=== PATIENT | female | born 1940 | race Caucasian/White ===

== ENCOUNTER 2019-11-13 19:22 | Inpatient (IN) | payer MEDICARE, OTHER ==
[~2019-11-13] VITALS: Ht 157.4 cm; Wt 49.4 kg
[~2019-11-13 19:22] MED LIST: AMIODARONE HYD200 MG PO; CARVEDILOL3.125 MG PO; FUROSEMIDE20 M1 PO; LISINOPRIL2.5 MG PO; WARFARIN SOD2 MG PO
[2019-11-13 19:35] VITALS: BP 125/53
[2019-11-13 20:38] LABS: HEMATOCRIT 39.4 % (37.0-47.0); MEAN CORPUSCULAR HGB 31.3 pg (27.0-31.0); MEAN CORPUSCULAR HGB CONC 32.2 g/dl (33.0-37.0); MEAN PLATELET VOLUME 10.2 fl (9.6-12.3); PLATELET COUNT AUTOMATED 265 10*3/uL (130-400); RED BLOOD COUNT 4.06 10*6/uL (4.10-5.10); RED CELL DISTRI WIDTH 15.8 % (0-14.5); WHITE BLOOD COUNT 26.3 10*3/uL (4.8-10.8)
[2019-11-13 20:52] LABS: ALBUMIN 2.7 gm/dl (3.1-4.5); CREATININE 1.91 mg/dL (0.55-1.02); POTASSIUM 4.4 mmol/L (3.5-5.1); TOTAL PROTEIN 6.6 gm/dL (6.4-8.2)
[2019-11-13 21:05] LABS: BASOPHILS 3 % (0-1); PLATELET SUFFICIENCY NORMAL (NORMAL); TOTAL CELLS COUNTED 100 #CELLS
[2019-11-13 22:41] LABS: BILIRUBIN NEGATIVE (NEGATIVE); BLOOD 1+ (NEGATIVE); CLARITY SL CLOUDY (CLEAR); COLOR YELLOW (YELLOW); GLUCOSE NEGATIVE (NEGATIVE); KETONE NEGATIVE (NEGATIVE); PH 8.5 (5.0-9.0); SPECIFIC GRAVITY 1.005 (1.005-1.030)
[2019-11-13 22:42] LABS: LEUKO ESTERASE 3+ (NEGATIVE); NITRITE POSITIVE (NEGATIVE); UROBILINOGEN 0.2 E.U./dl (0.2-1.0)
[2019-11-13 22:45] LABS: BACTERIA 2+; TRIP PHOS CRYSTALS 1+; WBC 21-30 wbc/hpf (0-5)
--- NOTE | 2019-11-14 00:42 | NUR ---
MED REC UPDATED VIA CLAIM HISTORY.
--- NOTE | 2019-11-14 01:26 | NUR ---
MULTIPLE AREAS TO TOES ON BOTH FEET NOTED TO BE OPENED AND REDDENDED. PT STATES THESE ARE CRHONIC AND HEEL QUICKLY. SHE DENIED PICS/MEASUREMENTS OF THEM BUT WAS AGREEABLE TO WOUND PIC/MEASUREMENTS TO LEFT ELBOW SKIN TEAR. REQUESTED THAT ONLY BAND AIDES BE APPLIED TO TOE AREAS.
--- NOTE | 2019-11-14 01:40 | NUR ---
WOUND TO LEFT ELBOW DRESSED PER ORDERS.
--- NOTE | 2019-11-14 03:45 | NUR ---
24HR CHART CHECK COMPLETED
[2019-11-14 06:29] LABS: HEMATOCRIT 37.8 % (37.0-47.0); MEAN CORPUSCULAR HGB 29.9 pg (27.0-31.0); MEAN CORPUSCULAR HGB CONC 31.5 g/dl (33.0-37.0); PLATELET COUNT AUTOMATED 280 10*3/uL (130-400); RED BLOOD COUNT 3.98 10*6/uL (4.10-5.10); RED CELL DISTRI WIDTH 15.6 % (0-14.5); WHITE BLOOD COUNT 23.7 10*3/uL (4.8-10.8)
[2019-11-14 06:57] LABS: CREATININE 1.71 mg/dL (0.55-1.02); POTASSIUM 4.2 mmol/L (3.5-5.1)
[2019-11-14 07:05] LABS: THYROID STIM HORMONE (HS) 0.733 uIU/ml (0.358-4.75)
[2019-11-14 07:20] LABS: BASOPHILS 1 % (0-1); TOTAL CELLS COUNTED 100 #CELLS
[2019-11-14 07:21] LABS: PLATELET SUFFICIENCY NORMAL (NORMAL)
--- NOTE | 2019-11-14 07:53 | NUR ---
IN PT ROOM TO COMPLETE ASSESSMENT, PT STATES THAT SHE IS FEELING BETTER AND READY TO GO HOME. DR SILVESTRE IN THE ROOM AND DESCRIBED HOW SHE WILL NEED TO STAY UNTIL THE URINCE CULTURE IS BACK SO THEY CAN TREAT THE UTI ACCORDINGLY. PT IS ORDERING FOOD AT THIS TIME, CALL LIGHT WITHIN REACH, WILL CONTINUE TO MONITOR
[2019-11-14 08:00] VITALS: BP 131/55
--- NOTE | 2019-11-14 11:29 | NUR ---
Shift chart check completed.
[2019-11-14 12:00] VITALS: BP 105/52
--- NOTE | 2019-11-14 13:06 | NUR ---
UPDATED DR SILVESTRE OF URINE CULTURE
--- NOTE | 2019-11-14 13:15 | NUR ---
MESSAGE LEFT FOR NEW CONSULT ON ANSWERING SERVICE
--- NOTE | 2019-11-14 13:33 | NUR ---
DEON KHAN CALLED AND TOLD HER THE PATIENT IS ON ROCEPHIN, SHE SAID TO JUST CONTINUE THAT
--- NOTE | 2019-11-14 13:40 | NUR ---
FAMILY MEMBER CALLED FOR PATIENT INFORMATION
[2019-11-14 16:00] VITALS: BP 133/64
[2019-11-14 20:00] VITALS: BP 118/60
[2019-11-15] VITALS: BP 122/62
[2019-11-15 06:30] LABS: BASO # 0.2 10*3/uL (0.0-0.1); BASO % 1.3 % (0.0-1.0); EOS # 0.2 10*3/uL (0.0-0.4); EOS % 1.6 % (1.0-4.0); HEMATOCRIT 35.5 % (37.0-47.0); LYMPH # 1.1 10*3/uL (1.3-4.4); MEAN CORPUSCULAR HGB 30.3 pg (27.0-31.0); MEAN CORPUSCULAR HGB CONC 31.3 g/dl (33.0-37.0); MONO % 7.4 % (3.0-9.0); NEUT # 10.9 10*3/uL (2.3-7.9); NEUT % 80.8 % (47.0-73.0); PLATELET COUNT AUTOMATED 276 10*3/uL (130-400); RED BLOOD COUNT 3.66 10*6/uL (4.10-5.10); RED CELL DISTRI WIDTH 15.8 % (0-14.5); WHITE BLOOD COUNT 13.4 10*3/uL (4.8-10.8)
[2019-11-15 06:40] LABS: CREATININE 1.26 mg/dL (0.55-1.02); POTASSIUM 3.9 mmol/L (3.5-5.1)
--- NOTE | 2019-11-15 07:50 | NUR ---
IN PT ROOM TO COMPLETE ASSESSMENT. SHE STATES THAT SHE IS STILL FEELING GOOD AND READY TO GET OUT OF HERE. SHE SLEPT THROUGH THE NIGHT IN THE CHAIR AND CONTINUES TO SIT IN THE CHAIR STATING THE CHAIR IS MORE COMFORTABLE THAN THE BED. PT UP TO RESTROOM WITH WALKER AND DID A GREAT JOB WITH WALKING. BACK IN CHAIR READY TO ORDER BREAKFAST. CALL LIGHT WITHIN REACH, WILL CONTINUE TO MONITOR
[2019-11-15 08:00] VITALS: BP 160/50
--- NOTE | 2019-11-15 08:11 | NUR ---
PHYSICAL THERAPY Physical therapy screen received and chart reviewed. Patient admitted for dehydration. Recommend skilled PT evaluation if decline in functional mobility presents. Thank you. Jessika Luna,PT,DPT
--- NOTE | 2019-11-15 09:00 | NUR ---
Trolley Car Overhauler in to talk to patient. Patient states lives at home with . There are no steps in the home. Physician: reji rios Pharmacy: mail Home health services: none Patient's level of ADLs: INDEPENDENT Patient has working utilities: all working DME: none Follow-up physician's appointment after d/c: will be made by hospitalist nurse director upon discharge Does patient want to access PORTAL?: no Discharge plan discussed with patient, she states she lives at home with her hsuband, she stated her grandaughter is in the process of moving in with them also, patient states she is independent in adls and ambulation, she doesn't drive but her or daughter does. she stated she will return home when medically stable. discussed with her [facility] and educated her on the services they proved. she stated she was familiar with [facility] but doesn't want any home services at this time, patient stated her will transport her home when she is medically stable for discharge. case management will follow for any other needs. HERBERTH WISEMAN
--- NOTE | 2019-11-15 09:40 | NUR ---
PT FLUIDS SHUT OFF DUE TO LEAVINGN FLOOR FOR RENAL US. WILL PLACE BACK ON WHEN SHE ARRIVES TO FLOOR
--- NOTE | 2019-11-15 09:41 | NUR ---
KAYODE UNDERWOOD [id number] Please refer to the physician's history and physical for past medical history, comorbid conditions, and allergies. Diagnosis: ABRIL (ACUTE KIDNEY INJURY), UTI (URINARY TRACT Nathaniel Score: 19,LOW OR NO RISK WOUND DESCRIPTIONS: Wound Number: 1 Location of the wound: Left elbow Type of wound: skin tear Thickness: Partial Size: 0.4cm x 0.4cm x <0.1cm Tunneling: none Undermining: none Sinus Tract: none Presence of Exudate: Serous sanguineous Amount: Light Color: Red Odor: None Periwound Skin Appearance: Normal Wound edges: approximated Pain (associated with wound): none at time of assessment How does patient state this happened? pt stated she wasn't even sure of how this happened Wound Number: 2 Location of the wound: left 2nd toe Type of wound: unstageable Thickness: Full Size: 1.2cm x 1.2cm x <0.1cm Tunneling: none Undermining: none Sinus Tract: none Presence of Exudate: none Amount: None Color: Yellow, red Odor: None Periwound Skin Appearance: Normal Wound edges: approximated Pain (associated with wound): none at time of assessment How does patient state this happened? pt stated she has had this for years and wants no treatment to them Wound Number: 3 Location of the wound: right 2nd toe Type of wound: unstageable Thickness: Full Size: 0.9cm x 0.8cm x <0.1cm Tunneling: none Undermining: none Sinus Tract: none Presence of Exudate: none Amount: None Color: Yellow, red Odor: None Periwound Skin Appearance: Normal Wound edges: approximated Pain (associated with wound): none at time of assessment How does patient state this happened? pt stated she has had this for years and wants no treatment to them Right 4th toe is red and blanchable at time of assessment. No open areas noted at this time. Surface the patient is resting on: Isoflex SKIN PREVENTION RECOMMENDATION: 1. Pressure redistribution support surface as appropriate 2. Elevate heels 3. Remove boots/TEDS every shift and reapply 4. Head of bed 30 degrees as tolerated 5. Assess nutrition and hydration 6. Manage moisture 7. Avoid the use of containment devices while in bed 8. Use absorptive products on surfaces limit layers of linens on bed 9. Turn and reposition every 1-2 hours in bed and every 1 hour in chair as tolerated 10. Weight shifts every 15 minutes while up in chair 11. Offloading with pillows or device to keep heels elevated off bed 12. Monitor skin at least every shift 13. Inspect under medical devices twice a day WOUND TREATMENT RECOMMENDATIONS: Would recommend consult to podiatry for possible debridement. Venous and arterial studies due to non-healing wounds. Cleanse right 2nd toe and left 2nd toe with nss and apply sureprep around the wound thearhoney to wound bed and cover with dsd every 2 days and prn for soiling. Apply sureprep to right 4th toe daily and prn for soiling cover with bandaid Patient refusing all treatment to areas to right 2nd and 4th toe as well as left 2nd toe. Continue skin tear guidelines to left elbow. Patient states she will care for these areas when she returns home and doesn't wish to follow up in an outpatient setting at this time.
--- NOTE | 2019-11-15 10:04 | NUR ---
PT BACK FROM US
--- NOTE | 2019-11-15 10:26 | NUR ---
Dr. Solitario notified of wound care orders needed.
[2019-11-15 12:00] VITALS: BP 121/62
--- NOTE | 2019-11-15 14:25 | NUR ---
BLADDER SCAN THE PATIENT AND THERE WAS 28ML SHOWING ON THE SCANNER. CALLED JOEL COULTER TO INFORM HER
[2019-11-15 16:00] VITALS: BP 166/72
--- NOTE | 2019-11-15 16:06 | NUR ---
CONSULSTED DR MICHELLE OF NEW CONSULT, RESIDENT STATES SHE WILL SEE HER TOMORROW
--- NOTE | 2019-11-15 17:11 | NUR ---
CALLED CT TO LET THEM KNOW PT FINISHED ALL OF HER REDICAT
--- NOTE | 2019-11-15 17:48 | NUR ---
PT OFF FLOOR TO CT
--- NOTE | 2019-11-15 19:20 | NUR ---
REPORT RECEIVED. PT SITTING IN CHAIR WATCHING TV AT THIS TIME. IV FLUIDS INFUSING WITHOUT DIFFICULTY. CALL LIGHT IN REACH
[2019-11-15 20:00] VITALS: BP 156/61
--- NOTE | 2019-11-15 22:00 | NUR ---
DR. BRADY NOTIFIED THAT PT LOST IV ACCESS AND NO NURSE CAN GET IV ACCESS AT THIS TIME. STATED THAT IT WAS OKAY TO NOT RECEIVE ROCEPHIN TONIGHT. D/C'D FLUIDS AT THIS TIME WELL. NO OTHER ORDERS.
[2019-11-16] VITALS: BP 132/47
--- NOTE | 2019-11-16 | NUR ---
PATIENT SLEEPING, AT THIS TIME. CALL LIGHT IN REACH
--- NOTE | 2019-11-16 04:00 | NUR ---
PT SLEEPING. CALL LIGHT IN REACH
[2019-11-16 06:09] LABS: BASO # 0.2 10*3/uL (0.0-0.1); BASO % 1.5 % (0.0-1.0); EOS # 0.2 10*3/uL (0.0-0.4); EOS % 2.1 % (1.0-4.0); HEMATOCRIT 33.8 % (37.0-47.0); LYMPH # 0.9 10*3/uL (1.3-4.4); LYMPH % 8.3 % (27.0-41.0); MEAN CELL VOLUME 97.1 fl (81.0-99.0); MEAN CORPUSCULAR HGB 30.2 pg (27.0-31.0); MEAN CORPUSCULAR HGB CONC 31.1 g/dl (33.0-37.0); MEAN PLATELET VOLUME 10.1 fl (9.6-12.3); MONO # 0.8 10*3/uL (0.1-1.0); MONO % 7.3 % (3.0-9.0); NEUT # 8.9 10*3/uL (2.3-7.9); PLATELET COUNT AUTOMATED 323 10*3/uL (130-400); RED BLOOD COUNT 3.48 10*6/uL (4.10-5.10); RED CELL DISTRI WIDTH 15.7 % (0-14.5); WHITE BLOOD COUNT 11.2 10*3/uL (4.8-10.8)
[2019-11-16 06:39] LABS: ALBUMIN 2.1 gm/dl (3.1-4.5); POTASSIUM 3.9 mmol/L (3.5-5.1)
[2019-11-16 06:41] LABS: CREATININE 1.07 mg/dL (0.55-1.02); TOTAL PROTEIN 5.7 gm/dL (6.4-8.2)
--- NOTE | 2019-11-16 06:58 | NUR ---
This nurse along with Veronica TANG went to change dressing per order patient refusing at this time. Patient states like I said yesterday my mother has had these areas and they don't need treatment. She states she just bumped her arm and is okay this morning and doesn't want treatment to it at this time.
--- NOTE | 2019-11-16 07:16 | NUR ---
NOTIFIED DR CABRERA OF POSITIVE BLOOD CULTURES
[2019-11-16 08:00] VITALS: BP 148/68
--- NOTE | 2019-11-16 08:00 | NUR ---
IN PT ROOM COMPLETING ASSESSMENT. SHE VOICES NO COMPLAINTS AND IS READY TO GO HOME. NO IV ACCESS AT THIS TIME. PT WALK TO BATHROOM WITH WALKER WITH NO ISSUES. CALL LIGHT WITHIN REACH, WILL CONTINUE TO MONITOR
--- NOTE | 2019-11-16 08:14 | NUR ---
JOEL COULTER IN TO SEE PATIENT AND STATES DO NOT ATTEMPT TO START IV, GOING TO SWITCH TO PO MEDS AND GET HER OUT OF HERE TODAY
--- NOTE | 2019-11-16 09:00 | NUR ---
case management visits with patient, she states she will be discharged to home today and denies any home needs, she will be transported home by her
[2019-11-16] MEDS ORDERED: OMNICEF300 MG PO (10:17)
--- NOTE | 2019-11-16 11:05 | NUR ---
IN PT ROOM DISCUSSING HOW THEY ARE GOING TO BE PUTTING IN HER DISHCARGE ORDER. I EXPLAINED HOW I NEED TO TAKE PICTURES OF HER "WOUNDS" BUT THE PATIENT STATES "I DO NO WANT PICTURES, THEY ARE NOT WOUNDS." PT IS GOING TO ORDER LUNCH WHILE WE WAIT FOR THE DISCHARGE TO BE PUT IN
--- NOTE | 2019-11-16 12:04 | NUR ---
WENT OVER DISCHARGE PAPERS WITH PATIENT AND MEDICATIONS FOR DISCHARDE, PT VERBALIZES AGREEMENT. SHE HAS NO QUESTIONS AT THIS TIME. NO IV TO REMOVE AND NO COPY MACHINE OPERATOR TO REMOVE.
--- NOTE | 2019-11-16 12:13 | NUR ---
PT LEAVING THE FLOOR AT THIS TIME
== END 2019-11-16 12:13 | disposition home or self-care (01) | DRG 871 ==
LOC: ED 19:22 → EDHOLD 11-14 → 4E 11-14
PROVIDERS: Physician Assistant; Registered Nurse; Student in an Organized Health Care Education/Training Program; ADMIT Internal Medicine
DX: A41.59 Other Gram-negative sepsis (principal); N17.0 Acute kidney failure with tubular necrosis; E43 Unspecified severe protein-calorie malnutrition; N30.01 Acute cystitis with hematuria; D68.59 Other primary thrombophilia; N13.2 Hydronephrosis with renal and ureteral calculous obstruction; Z68.1 Body mass index [BMI] 19.9 or less, adult; Z16.11 Resistance to penicillins; E83.41 Hypermagnesemia; R73.9 Hyperglycemia, unspecified; I25.10 Atherosclerotic heart disease of native coronary artery without angina pectoris; E86.0 Dehydration; B96.4 Proteus (mirabilis) (morganii) as the cause of diseases classified elsewhere; I25.2 Old myocardial infarction; Z85.3 Personal history of malignant neoplasm of breast; Z90.11 Acquired absence of right breast and nipple; Z79.899 Other long term (current) drug therapy; Z79.01 Long term (current) use of anticoagulants

== ENCOUNTER 2019-12-10 16:36 | Emergency (ER) | payer MEDICARE, OTHER ==
[~2019-12-10] VITALS: Ht 154.9 cm; Wt 47.6 kg
[~2019-12-10 16:36] MED LIST changes: +OMNICEF300 MG PO
[2019-12-10 18:14] LABS: BASO # 0.2 10*3/uL (0.0-0.1); BASO % 1.1 % (0.0-1.0); EOS # 0.1 10*3/uL (0.0-0.4); EOS % 0.6 % (1.0-4.0); HEMATOCRIT 38.2 % (37.0-47.0); LYMPH % 5.5 % (27.0-41.0); MEAN CELL VOLUME 92.5 fl (81.0-99.0); MEAN CORPUSCULAR HGB 29.5 pg (27.0-31.0); MEAN CORPUSCULAR HGB CONC 31.9 g/dl (33.0-37.0); MONO # 1.1 10*3/uL (0.1-1.0); NEUT # 15.6 10*3/uL (2.3-7.9); NEUT % 85.5 % (47.0-73.0); PLATELET COUNT AUTOMATED 435 10*3/uL (130-400); RED BLOOD COUNT 4.13 10*6/uL (4.10-5.10); RED CELL DISTRI WIDTH 15.3 % (0-14.5); WHITE BLOOD COUNT 18.3 10*3/uL (4.8-10.8)
[2019-12-10 18:30] LABS: ALBUMIN 2.6 gm/dl (3.1-4.5); CREATININE 1.7 mg/dL (0.55-1.02); POTASSIUM 3.6 mmol/L (3.5-5.1); TOTAL PROTEIN 6.8 gm/dL (6.4-8.2)
[2019-12-10 21:17] LABS: BILIRUBIN NEGATIVE (NEGATIVE); BLOOD TRACE-LYSED (NEGATIVE); COLOR YELLOW (YELLOW); GLUCOSE NEGATIVE (NEGATIVE); KETONE NEGATIVE (NEGATIVE); LEUKO ESTERASE TRACE (NEGATIVE); NITRITE POSITIVE (NEGATIVE); UROBILINOGEN 0.2 E.U./dl (0.2-1.0)
[2019-12-10 21:22] LABS: CLARITY SL CLOUDY (CLEAR)
[2019-12-10 21:23] LABS: BACTERIA 3+; EPITHELIAL CELLS 21-30; RBC 0-2 rbc/hpf (0-2); WBC 31-40 wbc/hpf (0-5)
== END 2019-12-10 21:54 | disposition short-term general hospital (02) ==
LOC: ED 16:36
PROVIDERS: Physician Assistant
DX: S72.002A Fracture of unspecified part of neck of left femur, initial encounter for closed fracture (principal); Z79.899 Other long term (current) drug therapy; W19.XXXA Unspecified fall, initial encounter; Y93.89 Activity, other specified; Y92.89 Other specified places as the place of occurrence of the external cause; Y99.8 Other external cause status